=== PATIENT | male | born 1955 | race Caucasian/White ===

== ENCOUNTER 2022-03-28 11:13 | Day surgery (SDC) | payer MEDICARE ==
[2022-03-27 12:36] VITALS: BMI 28.7
[~2022-03-28 11:13] MED LIST: ALBUTEROL NEB (CONC) 2.5 MG/0.5 ML INHALATION ONE; ATROPINE SULFATE 0.4 MG/ML 1 ML VIAL IM ONE; LACTATED RINGERS 1,000 ML IV SCH; LIDOCAINE 1% (10MG/ML) FOR IV START INTRADERMA PRN; LIDOCAINE 2% (PF) 20 MG/ML 5 ML VIAL INHALATION ONE; LIDOCAINE VISCOUS 300 MG/15 ML CUP MUCOUS MEM ONE
[2022-03-28 11:46] VITALS: TEMP 97
[2022-03-28 12:06] LABS: Glucose,Whole Blood 74 mg/dL (70-110)
[2022-03-28] MEDS ORDERED: PROPOFOL 10 MG/ML 20 ML VIAL IV ONE (12:10)
[2022-03-28] MEDS ORDERED: fentaNYL (PF) 50 MCG/ML 2 ML AMP ONE (12:10)
[2022-03-28] MEDS ORDERED: KETAMINE 10 MG/ML 20 ML VIAL ONE (12:10)
[2022-03-28] MEDS ORDERED: LIDOCAINE 2% INJ 20 MG/ML (2 ML VIAL) ONE (12:10)
[2022-03-28 13:02] VITALS: BP 133/72; PULSE 89; RESP 20
[2022-03-28 19:13] LABS: Appearance,BF Bloody
--- NOTE | 2022-03-28 21:13 | PCN ---
PROCEDURE NOTE PROCEDURES PERFORMED: Bronchoscopy, airway examination, therapeutic lavage, BAL. PREOPERATIVE DIAGNOSES: Idiopathic pulmonary fibrosis, retained secretions, and rule out infection. POSTOPERATIVE DIAGNOSES: Idiopathic pulmonary fibrosis, retained secretions, and rule out infection. OPERATORS: Dr. Solis and Dr. Perez. The patient's procedure took place in room #1 in [facility]. There was informed consent and universal timeout. ANESTHESIA PROVIDED: General anesthesia. DESCRIPTION OF PROCEDURE: After the patient was adequately sedated and being fully monitored, the bronchoscope was inserted through the left nostril. The left nasopharynx, oropharynx, and hypopharynx were traversed. The hypopharyngeal structures, including anterior commissure, true cords, false cords, arytenoids, piriform sinuses, right and left valleculae and epiglottis all appeared normal. The glottic opening was topicalized with lidocaine. The bronchoscope was inserted through the glottic opening into the trachea. The trachea appeared relatively normal. Tracheal gladys was sharp. The right and left mainstem were topicalized. The right upper lobe and its 3 segments, right middle lobe and its 2 segments, right lower lobe and its 5 segments, the left upper lobe proper and its 2 segments, the lingula and its 2 segments, and the left lower lobe and its 4 segments all had similar findings of diffuse airway erythema and hyperemia. There was some mucosal friability. The purulent secretions were noted particularly in the lower lobes bilaterally. They were suctioned. There was no dominant mass or tumor. The bronchoscope was then wedged into the right middle lobe, and BAL took place. 35 to 40 mL of fluid was recovered. The fluid will be sent to the laboratory for analysis. The bronchoscope was withdrawn. The patient was stable throughout the procedure. There was no immediate complication. I will discuss the procedure with the patient's . MMODL / IJN: [id number] /
== END 2022-03-28 13:23 | disposition home or self-care (01) ==
LOC: ORWHC2ENDO 11:13
PROVIDERS: ATTEND Internal Medicine Critical Care Medicine
DX: J84.112 Idiopathic pulmonary fibrosis (principal); J84.9 Interstitial pulmonary disease, unspecified
CPT/HCPCS: 87798 ×3; 87496; 87498; 87529; 88108; 88305; 89050; 87252; 87502; 87634; 87070; 87205; 87116; 87102; 87206; 31624; J3010; J2704; J2001